=== PATIENT | male | born 1990 | race African-American/Black ===

== ENCOUNTER 2017-05-02 13:44 | Emergency (ER) | payer SELFPAY ==
[~2017-05-02] VITALS: Ht 190.5 cm; Wt 80.0 kg
[2017-05-02 14:06] VITALS: BP 130/84
[2017-05-02] MEDS ORDERED: FLUORESCEIN SODIUM 1MG/STRIP OP ONE (14:15)
[2017-05-02] MEDS ORDERED: TETRACAINE 0.5% OPHTH DROPS 4ML OP ONE (14:15)
[2017-05-02 14:57] LABS: CLARITY URINE CLEAR (CLEAR); COLOR URINE YELLOW (YELLOW); KETONES URINE NEGATIVE (NEGATIVE); LEUKOCYTE ESTERASE URINE TRACE (NEGATIVE); NITRITE URINE NEGATIVE (NEGATIVE); OCCULT BLOOD URINE NEGATIVE (NEGATIVE); PROTEIN URINE NEGATIVE (NEGATIVE); SPECIFIC GRAVITY URINE 1.014 (1.005-1.030); UROBILINOGEN URINE 0.2 E.U./dL (0.2-1.0)
[2017-05-02] MEDS ORDERED: LIDOCAINE HCL 1% 20ML VIAL (Pyxis) INJ INFIL ONE (15:45)
[2017-05-02] MEDS ORDERED: AZITHROMYCIN 500 MG TABLET PO ONE (15:45)
[2017-05-02] MEDS ORDERED: CEFTRIAXONE SODIUM 250 MG/VIAL IM ONE (15:45)
[2017-05-02] MEDS ORDERED: ERYTHROMYCIN BASE 0.5% OPHTH OINT 3.5GM RIGHTEYE ONE (16:00)
[2017-05-05 04:15] LABS: CHLAMYDIA TRACHOMATIS NAA Negative (Negative); NEISSERIA GONORRHOEAE NAA Negative (Negative)
== END 2017-05-02 16:15 | disposition home or self-care (01) ==
LOC: ER 14:28
DX: H10.022 Other mucopurulent conjunctivitis, left eye (principal); J45.909 Unspecified asthma, uncomplicated; D57.1 Sickle-cell disease without crisis
CPT/HCPCS: 81001; 87491; 87591; 96372; 99284; J0696; J3490; Z7610